=== PATIENT | female | born 1955 | race African-American/Black ===

== ENCOUNTER 2025-05-02 17:15 | Inpatient (IN) | payer OTHER ==
[~2025-05-02] VITALS: Ht 165.1 cm; Wt 79.4 kg
[2025-05-02 17:23] VITALS: O2SAT 99
[2025-05-02 18:23] LABS: BASOPHILS % 0.3 % (0.0-2.0); EOSINOPHILS % 0.0 % (0.0-5.0); HEMATOCRIT. 31.4 % (36.0-48.0); HEMOGLOBIN. 9.9 g/dL (12.0-16.0); LYMPHOCYTES % 13.0 % (20.0-50.0); MEAN PLATELET VOLUME 11.6 fl (7.4-10.4); MONOCYTES % 8.9 % (2.0-8.0); NEUTROPHILS % 77.8 % (40.0-76.0); PLATELET 126 x1000/uL (130-400); RED BLOOD CELL COUNT 3.38 mill/uL (4.2-5.4); RED CELL DISTRIBUTION WIDTH 14.6 % (11.6-14.6)
[2025-05-02 18:34] LABS: INR 1.4
[2025-05-02 18:38] LABS: CREATININE 1.4 mg/dL (0.6-1.0)
[2025-05-02 18:39] LABS: TROPONIN I HIGH SENSITIVITY 8 ng/L (3.0-34); UREA NITROGEN BLOOD 14 mg/dL (9-23)
[2025-05-02 18:40] LABS: ASPARTATE AMINOTRANSFERASE 20 IU/L (<34)
[2025-05-02 18:41] LABS: BILIRUBIN DIRECT 0.2 mg/dL (<=3.0); BILIRUBIN TOTAL 0.7 mg/dL (0.1-1.0); PROTEIN TOTAL 5.6 g/dL (6.0-8.3)
[2025-05-02] MEDS ORDERED: VANCOMYCIN 1000MG/250ML 250 ML IV SCH (19:15)
[2025-05-02] MEDS: PIPERACILLIN/TAZO 3.375G/50ML 50 ML IV SCH (20:20)
[2025-05-02] MEDS: SODIUM CHLORIDE 0.9% 1,000 ML IV ONE (20:20)
[2025-05-02] MEDS: VANCOMYCIN 1G PREMIX 200 ML IV SCH (20:46)
[2025-05-02 21:34] LABS: INFLUENZA TYPE A Presumptive Negative (Pres. Neg.)
[2025-05-02 21:35] LABS: INFLUENZA TYPE B Presumptive Negative (Pres. Neg.)
[2025-05-02 21:36] LABS: RESPIRATORY SYNCYTIAL VIRUS Not Detected (Not Detectd)
[2025-05-02] MEDS ORDERED: POLYETHYLENE GLYCOL 3350 (17GM) 1 DOSE PACK PO PRN (23:45)
[2025-05-02] MEDS ORDERED: DEXTROSE 50% WATER 50ML SYRINGE IV PRN (23:45)
[2025-05-02] MEDS ORDERED: ONDANSETRON HCL 4MG/2ML INJ IV PRN (23:45)
[2025-05-02] MEDS ORDERED: GUAIFENESIN 200MG/10ML SUGAR FREE UDC PO PRN (23:45)
[2025-05-02] MEDS ORDERED: ACETAMINOPHEN 325MG TABLET PO PRN (23:45)
[2025-05-02] MEDS ORDERED: IPRATROPIUM/ALBUTEROL 0.5-3(2.5)MG/3ML NEB HHN PRN (23:45)
[2025-05-02] MEDS ORDERED: MAGNESIUM/ALUMINUM HYDROXIDE/SIMETHICONE 30ML UDC PO PRN (23:45)
[2025-05-03] MEDS: SODIUM CHLORIDE 0.9% 1,000 ML IV ONE (00:25)
[2025-05-03] MEDS ORDERED: ASPIRIN 81MG TABLET PO NR (00:30)
[2025-05-03] MEDS ORDERED: DEXT 5%/0.45% NACL 1000ML 1,000 ML IV ONE (00:45)
[2025-05-03] MEDS ORDERED: AZITHROMYCIN 500MG/250ML 250 ML IV SCH (01:00)
[2025-05-03] MEDS ORDERED: MAGNESIUM 4 G PREMIX 100 ML IV NR (01:00)
[2025-05-03] MEDS: KCL 20MEQ/100ML PREMIX 100 ML IV SCH (02:25)
[2025-05-03] MEDS: ASPIRIN 81MG TABLET PO NR (02:25)
[2025-05-03] MEDS: CLOPIDOGREL 75MG TABLET PO SCH (02:25)
[2025-05-03 02:41] LABS: LDL CHOLESTEROL 44.0 mg/dL (5-100); TRIGLYCERIDE 95.0 mg/dL (0-150)
[2025-05-03] MEDS ORDERED: PIPERACILLIN/TAZO 3.375G/50ML 50 ML IV SCH (06:00)
[2025-05-03] MEDS: BLOOD SUGAR DIAGNOSTIC STRIP TEST SCH (08:02)
[2025-05-03] MEDS: INSULIN LISPRO 100 UNITS/ML SUBCUT SCH (08:02)
[2025-05-03] MEDS: FAMOTIDINE 20MG/2ML VIAL IV SCH (09:03)
[2025-05-03] MEDS: ENOXAPARIN 30MG/0.3ML SYR SUBCUT SCH (09:04)
[2025-05-03 09:10] VITALS: BP 150/54; PULSE 58; RESP 18; TEMP 36.2; O2SAT 98
[2025-05-03 09:11] VITALS: BP 150/54; PULSE 57; RESP 18; TEMP 36.2512
[2025-05-03 12:00] VITALS: BP 139/52; PULSE 51; RESP 17; TEMP 36.7; O2SAT 95
[2025-05-03 12:06] LABS: CREATININE 1.3 mg/dL (0.6-1.0); UREA NITROGEN BLOOD 11 mg/dL (9-23)
[2025-05-03 12:10] LABS: T4 FREE 1.14 ng/dL (0.89-1.76)
[2025-05-03 13:35] VITALS: BP 139/52; PULSE 51; RESP 17; TEMP 98.1
[2025-05-03] MEDS ORDERED: ATORVASTATIN CALCIUM 40MG TABLET PO SCH (21:00)
[2025-05-04] MEDS ORDERED: AZITHROMYCIN 500MG/250ML 250 ML IV SCH (01:00)
== END 2025-05-03 15:20 | disposition short-term general hospital (02) | DRG 102 ==
LOC: ER 17:15 → EDBEDREQ 17:48 → 8WST 23:03 → EDBEDREQ 23:40 → EDBEDREQTM 23:40 → ENRESERV 05-03 06:56
PROVIDERS: ADMIT Internal Medicine; ATTEND Internal Medicine
DX: R51.9 Headache, unspecified (principal); J18.9 Pneumonia, unspecified organism; I69.354 Hemiplegia and hemiparesis following cerebral infarction affecting left non-dominant side; N17.9 Acute kidney failure, unspecified; D69.6 Thrombocytopenia, unspecified; R53.1 Weakness; E87.6 Hypokalemia; E83.42 Hypomagnesemia; Z20.822 Contact with and (suspected) exposure to COVID-19; E11.65 Type 2 diabetes mellitus with hyperglycemia; S99.911A Unspecified injury of right ankle, initial encounter; I10 Essential (primary) hypertension; Z86.718 Personal history of other venous thrombosis and embolism; Z79.899 Other long term (current) drug therapy; X58.XXXA Exposure to other specified factors, initial encounter; Y93.89 Activity, other specified; Y92.89 Other specified places as the place of occurrence of the external cause; Y99.8 Other external cause status
CPT/HCPCS: 36415; 71045; 73600; 80048; 80061; 80076; 82962; 83036; 83605; 83735; 83880; 84145; 84439; 84443; 84484; 85025; 86850; 86900; 87420; 87426; 87804; 93005; 93970; 99285; A4606; J1308; J1650; J2543; J3373; J3475; J3480; J7030